=== PATIENT | female | born 1960 | race Caucasian/White ===

== ENCOUNTER → 2017-03-10 | Outpatient (CLI) | payer BC ==
[~2017-03-10] MED LIST: AMOX1TAB12 PO; IRON; LEUP45SY; LEVO25TA2; LISI5TAB14 PO; ZOLP5TAB
[2017-03-10 17:49] VITALS: BP 134/82
--- NOTE | 2017-03-10 17:49 | Urgent Care T Sheet Gen (E) ---
Intake General Temperature (Fahrenheit): 98.3 Pulse: 112 Blood Pressure Systolic: 134 Blood Pressure Diastolic: 82 Respirations: 18 SPO2: 97 Description of Symptoms Patient presents following a cat bite. Approx less than an hour ago, the patient's cat was stuck on a fence. The patient removed the stuck cat, however the cat became frightened and bit and scratched her. The mostly got to the L forearm however there were also some carranza to the R forearm. patient immediately went inside and washed with warm water and rinsed with H2O2. Tdap is not up to date. History of Present Illness Allergies: Coded Allergies: No Known Allergies (Verified Allergy, 06/09/13) Home Meds Reported Medications Leuprolide Acetate (Lupron Depot)45 Mg Syringekit 06/22/13 [Iron] No Conflict Check 06/22/13 Levothyroxine Sodium (Synthroid)25 Mcg Tablet 06/22/13 Zolpidem Tartrate (Ambien)5 Mg Tablet 06/22/13 Lisinopril 5 Mg Tablet5 Mg PO PO 06/22/13 Respiratory Constitutional Symptoms: No syptoms reported EENTM: No symptoms reported Respiratory: No symptoms reported Cardiovascular: No symptoms reported Skin: Other (lacerations and bite carranza.) All Other Systems Reviewed Remaining Systems: All other systems reviewed with negative findings Past [id number] Hx Surgeries/Hospitalizations Hospitalization/Surgery Hx: TONSILLECTOMY, KIDNEY AND BLADDER SURGERY, OVARIAN CYSTECTOMY, OVARIAN SURGERY HX 3 KIDNEYS, HTN, THYROID, INSOMNIA, ANEMIA Respiratory Respiratory History: None Cardiovascular Cardiovascular History: Hypertension Reproductive System Sexually Transmitted Diseases: No Gastrointestinal GI/Endocrine History: Thyroid disorder, Anemia, Gallbladder problems Diabetes Diabetes: No HEENT Impaired Vision: Glasses Hearing Impaired: None Cancer History of Cancer?: No Psychosocial Behavior Disorders: None Physical Exam Physical Exam General Appearance: WD/WN No apparent distress Skin Exam: Other (there are several scratch carranza along the volar, dorsal and medial L forearm. varying depths and sizes. there are also several puncture wounds along the volar L forearm. 2 small scratches noted along the volar R forearm.) Procedures/Interventions Additional Procedure/Treatment : Progress I cleaned the wounds using Hibiclens. Medications Administered Medications Adminstered: TDAP > 7 yrs (IM injection into the R deltoid. Lot [id number] Exp 03/03/18) Departure Urgent Care Impression Impression: Primary Impression: Cat bite of forearm Qualified Code: S51.852A - Open bite of left forearm, initial encounter Departure Disposition: 01 HOME OR SELF-CARE Condition: Stable Referrals: PHILL OLGUIN MD (PCP) Additional Instructions: Patient suffered bites to both forearms however L is more severe I have started her on Augmentin x 10 days for treatment Instructed her to keep a careful eye on the areas and watch for signs of infection such as warmth, redness, drainage, pain. Stressed the importance of seeking immediate help as cat bites and become serious very suddenly Tdap was given during exam. Tolerated without issue Return as needed or present to ER if symptoms worsen Patient understands DC instructions. All questions were answered. Scripts Amoxicillin/Clavulanate Potassium (Augmentin 875mg/125mg)1 Each Tablet1 Tab PO BID #20 TAB Ref 0 Prov:GIOVANNI JACKSON 03/10/17 End of report . GIOVANNI JACKSON March 10, 2017 17:49
== END ==
LOC: MHUC 17:13
PROVIDERS: ATTEND Physician Assistant
DX: S51.852A Open bite of left forearm, initial encounter (principal); Z23 Encounter for immunization; W55.01XA Bitten by cat, initial encounter
CPT/HCPCS: 90471; 99213